=== PATIENT | female | born 1965 | race Two or more races ===

== ENCOUNTER 2019-11-29 09:00 | Emergency (ER) | payer OTHER, SELFPAY ==
[2019-11-29 09:10] VITALS: BP 130/79; PULSE 84; RESP 20; TEMP 36.5; O2SAT 99
--- NOTE | 2019-11-29 09:21 | ED.GENADULT ---
HPI - General Adult General Chief complaint: Extremity Injury, Upper Stated complaint: rt arm pain Time Seen by Provider: 11/29/19 09:21 Source: patient and RN notes reviewed Mode of arrival: ambulatory Limitations: no limitations History of Present Illness HPI narrative: 54-year-old female presents with complaints of right shoulder pain (initial pain started 10/2018) and decrease movement for the past 2 weeks. Pain radiates from RT side of neck down RT shoulder to elbow. Ibuprofen 400 mg (last this morning at 8 AM). Pain has increased over the last 48 hours. History right shoulder tendinitis and degenerative joint disease. 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 Luca says she was receiving outpatient physical therapy (past 6 months) on right shoulder until recently has been doing home exercises on own. Denies numbness or tingling. No known injury. Hurts with movement of shoulder. No loss of mobility. No swelling. Exacerbating factor is movement. Relieving factor is rest and pain medication. The dominant hand is the RIGHT HAND. Remains active. Luca denies being , LMP 11/2018. Some parts of this dictation were generated by voice recognition software and may contain typographical and/or grammatical inaccuracies. Related Data Home Medications Medication Instructions Recorded Confirmed ergocalciferol (vitamin D2) 11/29/19 [Vitamin D2] Allergies Allergy/AdvReac Type Severity Reaction Status Date / Time SHELLFISH Allergy Mild Uncoded 08/16/16 08:42 Review of Systems Review of Systems: Narrative: CONSTITUTIONAL: Denies fever, chills, sweats. EYES: Denies visual changes, redness, discharge. ENT: Denies rhinorrhea, congestion, sore throat, otalgia. CARDIOVASCULAR: Denies chest pain, palpitations, edema. RESPIRATORY: Denies dyspnea, wheezing, cough. GASTROINTESTINAL: Denies abdominal pain, nausea, vomiting, diarrhea. GENITOURINARY: Denies dysuria, hematuria, abnormal discharge. SKIN: Denies rash or itching. MUSCULOSKELETAL: Denies acute back pain or myalgia. Complains of RT shoulder pain with decrease movement. NEUROLOGIC: Denies numbness or focal weakness. PSYCHIATRIC: Denies anxiety or depression. All other systems reviewed & are unremarkable except as noted in HPI and below. [facility] Past Medical History Medical History (Updated 11/29/19 @ 09:45 by KAREN Garcia) delivery delivered DJD (degenerative joint disease) Right shoulder Right shoulder tendinitis Surgical History Surgical History (Updated 11/29/19 @ 09:38 by KAREN Garcia) H/O section X2 Family History Family History (Updated 11/29/19 @ 09:39 by KAREN Garcia) Mother Acute myocardial infarction Hypertension Father Alive and well Comments At time of signature, agree with nurse past medical, surgical, social, and family history. There is no relevant family history pertinent to the presenting complaint. Exam Narrative: Exam Narrative: GENERAL: This is a well-nourished, well-developed patient, in no apparent distress. Talks in full sentences and ambulates with steady gait without dyspnea. HEAD: normocephalic, atraumatic. EYES: PERRL. Sclera clear/white. Vision is grossly intact. THROAT: Mucous membranes moist, posterior pharynx clear. NECK: Neck supple, non-tender without lymphadenopathy, masses or thyromegaly. Trachea is midline. Skin intact, no swelling, no step offs, no deformity. Normal strength and sensation of UE and normal radial pulse. No enlarged nodes. No erythema. CARDIOVASCULAR: Regular rate and rhythm without murmurs, gallops, or rubs. RESPIRATORY: Clear to auscultation. Breath sounds equal bilaterally. No wheezes, rales, or rhonchi. GASTROINTESTINAL: Abdomen soft, non-tender, nondistended. Bowel sounds are active. No hepato-splenomegaly, or palpable masses. No guarding.
[2019-11-29] MEDS: KETOROLAC (*BKC) 60 MG/2 ML VIAL IM (09:40)
== END 2019-11-29 10:04 | disposition home or self-care (01) ==
PROVIDERS: Emergency Provider Nurse Practitioner Family; PCP Emergency Medicine
DX: M19.011 Primary osteoarthritis, right shoulder (principal)
CPT/HCPCS: 96372; 99213; G0463; J1885

== ENCOUNTER 2020-12-12 16:35 | Emergency (ER) | payer OTHER, SELFPAY ==
--- NOTE | ~2020-12-12 | XR_ITS ---
XR knee RT min 4V 12/12/2020 17:11 INDICATION: Right knee pain PROCEDURE: 5 views right knee COMPARISON: No prior studies for comparison. FINDINGS: Fracture, dislocation or subluxation is not identified. There is a moderate joint effusion. The soft tissues appear within normal limits. No foreign bodies are identified. IMPRESSION: 1: No acute fracture. 2: Moderate joint effusion. Reviewed, dictated and finalized at location A.
[2020-12-12 16:39] VITALS: BP 140/83; PULSE 72; RESP 16; TEMP 36.8; O2SAT 100
--- NOTE | 2020-12-12 16:46 | ED.GENADULT ---
HPI - General Adult General Chief complaint: Extremity Injury, Lower Stated complaint: rt knee pain Time Seen by Provider: 12/12/20 16:48 Source: patient Mode of arrival: ambulatory Limitations: no limitations History of Present Illness HPI narrative: 55-year-old female patient presents to the [facility] with complaints of right knee pain for the past few days. Denies any falling or trauma to the knee that she is aware of. Patient states it has been swollen, painful and it hurts to bend the knee. Patient states she has been trying to elevate it, ice it, use heat and take Tylenol and ibuprofen for the pain. Patient states it hurts worse when bending it and when trying to walk on it. Patient states she does have a follow-up appointment with Dr. Fonseca on December 30. Related Data Home Medications Medication Instructions Recorded Confirmed ergocalciferol (vitamin D2) 11/29/19 12/01/19 [Vitamin D2] rosuvastatin 5 mg PO DAILY 12/12/20 12/12/20 Allergies Allergy/AdvReac Type Severity Reaction Status Date / Time Tetracyclines Allergy Mild Skin Verified 12/12/20 16:51 Reaction SHELLFISH Allergy Mild Rash Uncoded 12/12/20 16:51 Review of Systems Review of Systems: Narrative: CONSTITUTIONAL: Denies fever, chills, or sweats. EYES: Denies visual changes, redness, or discharge. ENT: Denies rhinorrhea, congestion, sore throat, or otalgia. CARDIOVASCULAR: Denies chest pain, palpitations, or edema. RESPIRATORY: Denies cough or dyspnea. GASTROINTESTINAL: Denies abdominal pain, nausea, vomiting, or diarrhea. GENITOURINARY: Denies dysuria or hematuria. SKIN: Denies rash or itching. MUSCULOSKELETAL: Denies back pain, joint pain, or myalgia. Positive right knee pain NEUROLOGIC: Denies headache, numbness, or weakness. PSYCHIATRIC: Denies anxiety or depression. [facility] Past Medical History Medical History Calcific tendinitis of right shoulder delivery delivered DJD (degenerative joint disease) Right shoulder Right shoulder tendinitis Surgical History Surgical History H/O section X2 Family History Family History Mother Acute myocardial infarction Hypertension Father Alive and well Other Family history of congenital heart disease Social History Social History Smoking status: Never smoker Alcohol intake: current Gender identity (if verbalized by the patient): Female Comments At the time of my signature I agree with nursing past medical history, surgical, social, and family history. There is no relevant family history pertinent to the presenting complaint. Exam Narrative: Exam Narrative: GENERAL: Well-appearing, well-nourished, and in no acute distress. HEAD: Normocephalic, atraumatic. EYES: PERRLA and EOMI. ENT: Nares clear, no rhinorrhea or epistaxis. Mucous membranes moist. NECK: Supple. No lymphadenopathy CHEST: Clear to auscultation. No respiratory distress. HEART: Regular rate and rhythm. No murmur heard. Normal peripheral pulses. ABDOMEN: Soft, nontender, nondistended, normal active bowel sounds. EXTREMITIES: Patient is able to bear weight and ambulate but has increased pain to the right knee. No surface trauma, STS, there is an obvious effusion noted to the right knee. No overlying erythema or warmth. The R knee is without obvious asymmetry or deformity when compared to the L knee. Patient complains of pain when deep knee bend, patient is able to fully extend knee, internal and external rotation. tendernss to palpation of the patella, obvious effusion and ballottement. No tenderness over the infrapatellar tendon. No tenderness over the medial or lateral joint lone ot the medial or lateral tibial plateaus. no tenderness over the proximal fibular head. no tenderness, f
== END 2020-12-12 17:37 | disposition home or self-care (01) ==
PROVIDERS: Emergency Provider Nurse Practitioner Family; PCP Emergency Medicine
DX: M25.461 Effusion, right knee (principal); M19.011 Primary osteoarthritis, right shoulder; E78.00 Pure hypercholesterolemia, unspecified
CPT/HCPCS: 73564; 99213; G0463

== ENCOUNTER 2020-12-16 11:26 | Outpatient (NON) | payer OTHER, SELFPAY ==
[2020-12-16 12:22] LABS: Color Synovial Fluid Yellow (Colorless); Source Synovial Fluid Synovial fluid
[2020-12-16 12:23] LABS: Appearance Synovial Fluid Cloudy (Clear); Lymphocytes Synovial Fluid 39 %; Monocytes Synovial Fluid 3 %; Neutrophils Synovial Fluid 58 % (0-25); Nucleated Cell Synovial Fluid 8494 /uL (0-200); RBC Synovial Fluid 13777 /uL (0-0)
[2020-12-16 12:28] LABS: Crystals Synovial Fluid None Seen (None Seen)
== END 2020-12-16 11:27 | disposition home or self-care (01) ==
PROVIDERS: PCP Emergency Medicine; Visit Provider Orthopaedic Surgery
DX: M25.461 Effusion, right knee (principal)
CPT/HCPCS: 36415; 84560; 87070; 87075; 87205; 89051; 89060

== ENCOUNTER 2021-02-07 08:45 | Outpatient (CLI) | payer OTHER, SELFPAY ==
--- NOTE | ~2021-02-07 | MR_ITS ---
EXAMINATION: MR knee RT wo con DATE: 02/07/2021 10:06 INDICATION: Right knee effusion and medial right knee pain TECHNIQUE: Magnetic resonance imaging (MRI) of the right knee was performed without intravenous contr ast. Sequences included coronal PD-weighted FSE, coronal PD-weighted FS FSE, sagittal T2-weighted FS E, sagittal PD-weighted FS FSE and axial PD weighted fat saturated FSE. COMPARISON: None. FINDINGS: Medial compartment: Medial meniscus is normal. Small region of partial-thickness chondral fissuring extending anteroposte riorly along the lateral margin of the anterior weightbearing medial femoral condyle. Lateral compartment: Lateral meniscus is normal. Mild partial-thickness cartilage loss with smooth chondral surface at the central to posterior weightbearing lateral femoral condyle. Patellofemoral compartment: Small band of partial-thickness chondral ulceration and fissuring which appears to involve less than 50% the cartilage thickness extending horizontally across the midportion of the patellar apical ridge and medial facet. Trochlear cartilage is normal. Ligaments and tendons: Anterior and posterior cruciate ligaments are normal. The medial collateral ligament and fibular mia ateral ligament complex are normal. The extensor mechanism is normal. The visualized medial and later al hamstring tendons as well as the iliotibial band are normal. Fluid: Moderate-sized right knee joint effusion. No loose osteochondral bodies identified. Osseous/other: Normal marrow signal. No fracture or pathologic marrow replacing process. IMPRESSION: 1. 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 2. Moderate-sized right knee joint effusion. 3. Normal menisci and stabilizing ligaments of the knee. Reviewed, dictated and finalized at location A. IMPRESSION: 1. Mild tricompartmental osteoarthritis with small regions of moderate grade ch ondromalacia in all 3 compartments. 2. Moderate-sized right knee joint effusion. 3. Normal menisci and stabilizing ligaments of the knee.
== END 2021-02-07 08:46 | disposition home or self-care (01) ==
PROVIDERS: PCP Emergency Medicine; Visit Provider Orthopaedic Surgery
DX: M17.11 Unilateral primary osteoarthritis, right knee (principal); M25.461 Effusion, right knee
CPT/HCPCS: 73721

== ENCOUNTER 2021-03-11 07:42 | Emergency (ER) | payer OTHER, SELFPAY ==
[2021-03-11] VITALS (7 sets, daily range): BP systolic 115–142; BP diastolic 80–92; PULSE 61–75; RESP 20; TEMP 36.8; O2SAT 99–100
--- NOTE | ~2021-03-11 | XR_ITS ---
EXAMINATION: XR hip RT 2V w AP pelvis INDICATION: Right hip pain TECHNIQUE: AP view the pelvis and two views of the right hip are obtained COMPARISON: 12/24/2011 FINDINGS: Bone alignment is normal. There is no fracture. The soft tissues are unremarkable. IMPRESSION: 1. No acute osseous abnormality. Reviewed, dictated and finalized at location A.
--- NOTE | ~2021-03-11 | CT_ITS ---
EXAMINATION: CT brain wo con INDICATION: Head injury COMPARISON: None TECHNIQUE: Standard unenhanced head CT. The dose-length product (DLP) was 605.33 mGy-cm. The mA was a djusted according to patient size. Iterative reconstruction technique was employed. FINDINGS: There is no intracranial hemorrhage, acute infarction, or abnormal mass lesion. The ventric les are normal. There is no abnormal mass effect or midline shift. The vargas-white matter differentiat ion is normal. The basal cisterns are patent. The orbits are normal. The paranasal sinuses, mastoids and calvarium are normal. IMPRESSION: 1. No acute intracranial abnormality. Reviewed, dictated and finalized at location A.
--- NOTE | ~2021-03-11 | XR_ITS ---
EXAMINATION: XR chest 1V portable INDICATION: Transient alteration of awareness TECHNIQUE: Portable AP chest at 0815 hours COMPARISON: 02/24/2010 FINDINGS: The lungs are free of acute opacities. There is no pleural effusion or pneumothorax. The ca rdiomediastinal silhouette is normal. The visualized bones and soft tissues are unremarkable. IMPRESSION: 1. No acute cardiopulmonary abnormality. Reviewed, dictated and finalized at location A.
--- NOTE | ~2021-03-11 | CT_ITS ---
EXAMINATION: CT cervical spine wo con DATE: 03/11/2021 08:35 INDICATION: Head injury TECHNIQUE: Computed tomography (CT) of the cervical spine was performed without intravenous contrast. The dose-length product (DLP) was 141.83 mGy-cm. Automated exposure control and iterative reconstruc tion technique were employed. COMPARISON: None FINDINGS: There is no fracture, dislocation, or subluxation. The odontoid is intact. The vertebral lorri dy heights are maintained. There is mild loss of intervertebral disc space height at C6-7. IMPRESSION: 1. Mild cervical spondylosis without acute findings. Reviewed, dictated and finalized at location A.
--- NOTE | 2021-03-11 07:49 | ECG_ITS ---
Measurements Intervals [place] Rate: 62 P: 28 MD: 191 QRS: -28 QRSD: 102 T: 62 QT: 403 QTc: 411 Interpretive Statements SINUS RHYTHM INCOMPLETE RIGHT BUNDLE BRANCH BLOCK DELAYED PRECORDIAL R/S TRANSITION BORDERLINE ECG Electronically Signed On 03-11-2021 8:13:54 CDT by Epifanio Banda D.O.
[2021-03-11 08:22] LABS: Basophils Percent Auto 0.3 % (0.2-1.2); Eosinophils Absolute Auto 0.1 K/mm3 (0-0.3); Eosinophils Percent Auto 1.7 % (0-4.4); Hematocrit 37.1 % (37.0-47.0); Hemoglobin 12.1 g/dL (12.0-15.0); Immature Granulocyte Absolute 0.02 K/mm3 (0.00-0.031); Immature Granulocyte Percent A 0.3 % (0-0.5); Lymphocytes Absolute Auto 2.22 K/mm3 (0.9-3.2); Lymphocytes Percent Auto 34.2 % (18.3-44.2); Mean Corpuscular HGB Conc 32.6 g/dl (32-36); Mean Corpuscular Hemoglobin 27.2 pg (26-34); Mean Corpuscular Volume 83.4 fl (80-100); Mean Platelet Volume 10.1 fl (7.4-10.4); Monocytes Absolute Auto 0.6 K/mm3 (0.1-0.6); Monocytes Percent Auto 9.1 % (2.6-8.5); Neutrophils Absolute Auto 3.5 K/mm3 (1.3-6.7); Neutrophils Percent Auto 54.4 % (45.5-73.1); Platelet Count Result 218 k/mm3 (150-375); Red Blood Count 4.45 M/mm3 (4.2-5.4); White Blood Count 6.5 K/mm3 (4.5-10.0)
--- NOTE | 2021-03-11 08:25 | ED.GENADULT ---
HPI - General Adult General Chief complaint: Back Pain/Injury Stated complaint: back/hip pain Time Seen by Provider: 03/11/21 07:45 Source: patient and RN notes reviewed Mode of arrival: EMS Limitations: no limitations History of Present Illness HPI narrative: This is a 55 year old female with history of chronic neck and right knee pain who presents for evaluation of right hip pain and syncopal episode. Patient states she noticed right posterior hip pain last night. Her pain is worse with walking and it radiates to right thigh. She states she went to bed last night and her pain was minimal. Her pain was worse this morning. She states she was in the kitchen and she developed worsening pain. She became dizzy and she passed out. She also reported nausea at this time. She denies chest pain, sob, or palpitations. She thinks she hit her head. She reports neck pain that may be her chronic pain. She denies focal weakness, numbness or tingling. She also complains of pain to her left small toe. Related Data Home Medications Medication Instructions Recorded Confirmed ergocalciferol (vitamin D2) 1,250 mcg PO [id number] 11/29/19 03/11/21 [Vitamin D2] rosuvastatin 5 mg PO DAILY 12/12/20 03/11/21 Allergies Allergy/AdvReac Type Severity Reaction Status Date / Time Tetracyclines Allergy Mild Skin Verified 03/11/21 07:48 Reaction SHELLFISH Allergy Mild Rash Uncoded 03/11/21 07:48 Review of Systems Review of Systems: All systems reviewed & are unremarkable except as noted in HPI and below Constitutional: Constitutional: Denies chills and Denies fever(s) Eyes: Eyes: Denies change in vision ENT: Reports dizziness Cardiovascular: Cardiovascular: Denies chest pain and Denies rapid heart rate Respiratory: Respiratory: Denies cough and Denies dyspnea Gastrointestinal: Gastrointestinal: Denies abdominal pain, Reports nausea and Denies vomiting Musculoskeletal: Musculoskeletal: Reports back pain Neurologic: Denies vertigo, Reports syncope, Reports headache(s) and Denies numbness PMFSH Past Medical History Medical History Calcific tendinitis of right shoulder delivery delivered DJD (degenerative joint disease) Right shoulder Right shoulder tendinitis Surgical History Surgical History H/O section X2 Family History Family History Mother Acute myocardial infarction Hypertension Father Alive and well Other Family history of congenital heart disease Social History Social History Smoking status: Never smoker Alcohol intake: current Gender identity (if verbalized by the patient): Female Exam Const: General: no acute distress and alert Orientation/consciousness: patient oriented x3 HENMT: Head: normocephalic and atraumatic Face and sinus: face symmetric Mouth: Yes Normal oral and palatal mucosa present, Yes lip normal, Yes oropharynx normal and Yes moist mucous membranes Eyes: Pupils: Equal, round and reactive pupils present EOM: EOMs intact bilaterally Neck: Other: cervical collar Resp: Effort & Inspection: normal respiratory effort and no retractions Auscultation: clear to auscultation bilaterally Cardio: Rate: regular rate Rhythm: regular rhythm Heart sounds: no murmurs GI: GI Palp: Yes Soft to palpation, No Tenderness to palpation present (GI) and No Guarding due to palpation present (GI) Auscultation: normal bowel sounds Skin: General skin exam: normal color Rashes: no rashes Neuro: General: patient oriented x3, moves all extremities and CN's II-XI intact bilaterally Extrem: General: no clubbing, cyanosis or edema Psych: Mental Status: mental status grossly normal Affect: normal affect Course Reevaluation(s) Reevaluation #1: Patient mckeon
[2021-03-11 08:36] LABS: INR 1.1; Prothrombin Time 13.8 Seconds (11.1-14.7)
[2021-03-11 08:38] LABS: Partial Thromboplastin Time 26.8 SECONDS (22.3-36.8)
[2021-03-11 08:40] LABS: Alanine Aminotransferase 22 U/L (4-35); Albumin Level 4.1 g/dL (3.5-5.1); Alkaline Phosphatase 73 U/L (38-126); Anion Gap 9 mmol/L (8-16); Aspartate Amino Transferase 29 U/L (14-36); Bilirubin,Total 0.4 mg/dL (0.2-1.3); Blood Urea Nitrogen 9 mg/dL (7-17); Carbon Dioxide 25 mmol/L (22-30); Chloride 105 mmol/L (98-107); Estimated CRCL calculation 71 ml/min; Estimated Glomerular Filt Rate > 60; Glucose 103 mg/dL (65-110); Magnesium 1.8 mg/dL (1.6-2.3); Potassium 3.7 mmol/L (3.4-5.0); Sodium 139 mmol/L (137-145)
[2021-03-11 08:51] LABS: Troponin I < 0.012 ng/mL (0.000-0.034)
[2021-03-11 08:52] LABS: D Dimer 0.24 ug/mL (<0.48)
[2021-03-11] MEDS: KETOROLAC 15 MG/ML VIAL (*BKC) IV PUSH (09:18)
[2021-03-11 09:58] LABS: Add Urine Microscopic? YES; Appearance Urine Clear (Clear); Bacteria Urine Trace /hpf; Bilirubin Urine Negative (Negative); Blood Urine Negative (Negative); Color Urine Yellow (Yellow); Glucose Urine UA Negative (Negative); Ketones Urine Negative (Negative); Leukocyte Esterase Ur Trace LEU/UL (Negative); Mucus Urine Rare /lpf; Nitrate Urine Negative (Negative); Protein Urine Negative (Negative); RBC Urine 0-2 /hpf (0-2); Specific Grav Ur 1.008 (1.001-1.035); Squamous Epithelial Cell Urine Rare /hpf (Few); Urobilinogen Urine Negative mg/dL (<2.0)
== END 2021-03-11 11:20 | disposition home or self-care (01) ==
PROVIDERS: Emergency Provider General Practice; PCP Emergency Medicine
DX: R55 Syncope and collapse (principal); M25.551 Pain in right hip; M19.011 Primary osteoarthritis, right shoulder; M47.812 Spondylosis without myelopathy or radiculopathy, cervical region; I45.10 Unspecified right bundle-branch block
CPT/HCPCS: 36415; 70450; 71045; 72125; 73502; 80053; 81001; 83735; 84484; 85025; 85380; 85610; 85730; 93005; 96374; 99284; J1885

== ENCOUNTER → 2022-10-08 13:50 | Outpatient (CLI) | payer OTHER, SELFPAY ==
--- NOTE | ~2022-10-08 | XR_ITS ---
Left Hand Technique: PA, oblique, and lateral views were obtained. Clinical History: Pain Findings: No acute fracture or dislocation is seen. Osseous alignment is anatomic. Joint spaces are p reserved. Soft tissues are unremarkable. Impression: Unremarkable left hand. Reviewed, dictated and finalized at location M. [employer] Impression: Unremarkable left hand.
--- NOTE | ~2022-10-08 | XR_ITS ---
Right Hand Technique: PA, oblique, and lateral views were obtained. Clinical History: Pain Findings: No acute fracture or dislocation is seen. Osseous alignment is anatomic. Joint spaces are p reserved. Soft tissues are unremarkable. Impression: Unremarkable right hand. Reviewed, dictated and finalized at location M. [employer] Impression: Unremarkable right hand.
== END ==
PROVIDERS: PCP Emergency Medicine; Visit Provider Internal Medicine
DX: M79.641 Pain in right hand (principal); M79.642 Pain in left hand; R76.8 Other specified abnormal immunological findings in serum
CPT/HCPCS: 73130

== ENCOUNTER 2024-01-22 13:26 | Outpatient (CLI) | payer OTHER, SELFPAY ==
--- NOTE | ~2024-01-22 | US_ITS ---
EXAMINATION: US venous doppler LE RT DATE: 01/22/2024 14:10 INDICATION: Right thigh pain. TECHNIQUE: Grayscale ultrasound images without and with compression and Doppler ultrasound images of the right lower extremity veins were obtained. COMPARISON: None. FINDINGS: The visualized portions of right common femoral vein, profunda (deep) femoral vein, femoral vein, pop liteal vein, peroneal veins, posterior tibial veins, and greater saphenous vein outflow are patent. IMPRESSION: 1. No deep venous thrombosis. Reviewed, dictated and finalized at location A.
== END 2024-01-22 13:27 | disposition home or self-care (01) ==
PROVIDERS: PCP Emergency Medicine; Visit Provider Emergency Medicine
DX: M79.651 Pain in right thigh (principal)
CPT/HCPCS: 93971